=== PATIENT | female | born 1945 | race Caucasian/White ===

== ENCOUNTER 2023-06-17 08:04 | Outpatient (RCR) | payer MEDICARE, OTHER, SELFPAY | END 2023-08-17 11:53 | disposition home or self-care (01) | LOC: HO.WCC 08:04 | PROVIDERS: PCP Internal Medicine; Referring Provider Internal Medicine; Visit Provider Surgery | DX: I87.312 Chronic venous hypertension (idiopathic) with ulcer of left lower extremity (principal); L97.822 Non-pressure chronic ulcer of other part of left lower leg with fat layer exposed; W54.0XXD Bitten by dog, subsequent encounter; Z79.899 Other long term (current) drug therapy | CPT/HCPCS: 11042; 15271; 99212; Q4187 ==